=== PATIENT | female | born 1975 | race American Indian/Alaskan Native ===

== ENCOUNTER 2018-03-21 23:48 | Emergency (ER) | payer SELFPAY ==
[2018-03-22 01:44] VITALS: BP 143/81
[2018-03-22] MEDS ORDERED: NORCO 5/325 PO ONE (02:15)
--- NOTE | 2018-03-22 02:15 | Emergency Department Report ---
ED ENT HPI - General Chief complaint: Earache Stated complaint: RT EARACHE Time Seen by Provider: 03/22/18 01:58 Source: patient Mode of arrival: Ambulatory Limitations: No Limitations - History of Present Illness Initial comments: This is a 42-year-old -[place] female who presents with right ear pain for 1 month. Patient states she was seen at [facility] twice for same symptoms. She was placed on 2 separate oral antibiotics, antibiotic drops, and Blair with no improvement of symptoms. Patient states she gave part of her first antibiotics prescribed to her boyfriend but she used all of the antibiotic drops. She is currently still taking amoxicillin with no improvement of symptoms. She reports pain is 10/10 on pain scale right ear to right jaw that is worse with chewing. She denies rhinorrhea, fever, drainage from ear, tinnitus, chest pain, or congestion. MD complaint: ear pain (right ear) Onset/Timin -: month(s) Location: R ear Severity: severe Severity scale (0 -10): 10 Quality: aching Consistency: intermittent Improves with: none Worsens with: eating Context- Dental: history of dental caries - Related Data Previous Rx's Medication Instructions Recorded Last Taken Type Acetaminophen/Codeine [Tylenol 1 tab PO Q6H PRN #8 tab 03/22/18 Unknown Rx /Codeine # 3 tab] Allergies Allergy/AdvReac Type Severity Reaction Status Date / Time No Known Allergies Allergy Unverified 03/22/18 02:04 ED Dental HPI - General Chief complaint: Earache Stated complaint: RT EARACHE Time Seen by Provider: 03/22/18 01:58 Source: patient Mode of arrival: Ambulatory Limitations: No Limitations - Related Data Previous Rx's Medication Instructions Recorded Last Taken Type Acetaminophen/Codeine [Tylenol 1 tab PO Q6H PRN #8 tab 03/22/18 Unknown Rx /Codeine # 3 tab] Allergies Allergy/AdvReac Type Severity Reaction Status Date / Time No Known Allergies Allergy Unverified 03/22/18 02:04 ED Review of Systems ROS: Stated complaint: RT EARACHE Other details as noted in HPI Constitutional: denies: chills, fever ENT: ear pain (right ear). denies: throat pain Respiratory: denies: cough, shortness of breath, wheezing Cardiovascular: denies: chest pain, palpitations Gastrointestinal: denies: abdominal pain, nausea, diarrhea Skin: denies: rash, lesions Neurological: denies: headache, weakness, paresthesias Psychiatric: denies: anxiety, depression ED Past Medical Hx - Past Medical History Previous Medical History?: No - Surgical History Past Surgical History?: No - Social History Smoking Status: Light Tobacco Smoker Substance Use Type: None - Medications Home Medications: Home Medications Medication Instructions Recorded Confirmed Last Taken Type Acetaminophen/Codeine [Tylenol 1 tab PO Q6H PRN #8 tab 03/22/18 Unknown Rx /Codeine # 3 tab] ED Physical Exam - General Limitations: No Limitations General appearance: alert, in no apparent distress - ENT ENT exam: Present: mucous membranes moist, normal external ear exam. Absent: TM 's normal bilaterally (right TM erythematous and bulging, tenderness) - Neck Neck exam: Present: normal inspection - Respiratory Respiratory exam: Present: normal lung sounds bilaterally. Absent: respiratory distress - Cardiovascular Cardiovascular Exam: Present: regular rate, normal rhythm. Absent: systolic murmur, diastolic murmur, rubs, gallop - GI/Abdominal GI/Abdominal exam: Present: soft, normal bowel sounds - Neurological Exam Neurological exam: Present: alert, oriented X3 - Psychiatric Psychiatric exam: Present: normal affect, normal mood - Skin Skin exam: Present: warm, dry, intact, normal color. Absent: rash ED Course Vital Signs 03/22/18 01:31 Temperature 98 F Pulse Rate 53 L Respiratory 18 Rate Blood Pressure 143/81 O2 Sat by Pulse 100 Oximetry ED Medical Decision Making - Medical Decision Making Patient is stable and was examined by me. Vitals normal. Patient given Blair 5 /325 mg by mouth once while in ER. Physical findings erythematous TM on the right. Patient currently taking amoxicillin prescribed by Delicia. Instructed to complete full course of antibiotics as prescribed. Start Tylenol with codeine for pain. Referral to ear nose and throat. Discharged home in stable condition. Follow up with PCP in 24-72 hours. Critical care attestation.: If time is entered above; I have spent that time in minutes in the direct care of this critically ill patient, excluding procedure time. ED Disposition Clinical Impression: Right ear pain Otitis media Qualifiers: Otitis media type: suppurative Chronicity: acute Laterality: right Recurrence: recurrent Spontaneous tympanic membrane rupture: without spontaneous rupture Qualified Code(s): H66.004 - Acute suppurative otitis media without spontaneous rupture of ear drum, recurrent, right ear Disposition: DC-01 TO HOME OR SELFCARE Is pt being admited?: No Does the pt Need Aspirin: No Condition: Stable Instructions: Otitis Media (ED) Additional Instructions: Give Tylenol or ibuprofen for pain every 6-8 hours. Take antibiotics as prescribed to avoid recurrence of the ear infection. Avoid high altitudes, may worsen the pain during ear infection. If symptoms do not improve within 2 to 3 days, then follow up with primary care provider or ear nose and throat. Prescriptions: Acetaminophen/Codeine [Tylenol /Codeine # 3 tab] 1 tab PO Q6H PRN #8 tab PRN Reason: Pain , Severe (7-10) Referrals: [facility] [Provider Group] - 3-5 Days [facility] [Outside] - 3-5 Days [facility] [Outside] - 3-5 Days Forms: Work/School Release Form(ED) Time of Disposition: 02:26
== END 2018-03-22 02:47 | disposition home or self-care (01) ==
LOC: ED 23:48
DX: H66.004 Acute suppurative otitis media without spontaneous rupture of ear drum, recurrent, right ear (principal); F17.200 Nicotine dependence, unspecified, uncomplicated
CPT/HCPCS: 99282